=== PATIENT | female | born 1995 | race African-American/Black ===

== ENCOUNTER 2017-05-16 11:41 | Emergency (ER) | payer MEDICAID ==
[~2017-05-16] VITALS: Ht 162.6 cm; Wt 67.4 kg
[2017-05-16] MEDS ORDERED: SODIUM CHLORIDE 0.9% 1,000ML IVBOLUS ONE (12:30)
[2017-05-16] MEDS ORDERED: ONDANSETRON 2MG/ML, 2ML IVPush ONE (12:30)
[2017-05-16] MEDS ORDERED: SODIUM CHLORIDE FLUSH 10ML SYR IVF ONE (12:30)
[2017-05-16] MEDS ORDERED: MORPHINE SULFATE 4 MG/ML, 1ML IVPush PRN (12:30)
[2017-05-16] MEDS ORDERED: MORPHINE SULFATE 4 MG/ML, 1ML ONE (12:32)
[2017-05-16] MEDS ORDERED: ONDANSETRON 2MG/ML, 2ML ONE (12:33)
[2017-05-16 12:57] LABS: HEMATOCRIT 35.9 % (34.6-47.8); HEMOGLOBIN 12.1 g/dL (11.7-16.4); WHITE BLOOD COUNT 4.3 x10^3/uL (4.5-13.2)
[2017-05-16 12:58] LABS: ASPARTATE AMINO TRANSFERASE 20 U/L (15-37); BLOOD UREA NITROGEN 7 mg/dL (7-18)
[2017-05-16 14:57] VITALS: BP 115/70
== END 2017-05-16 14:59 | disposition home or self-care (01) ==
LOC: ED 14:53
DX: N93.8 Other specified abnormal uterine and vaginal bleeding (principal)
CPT/HCPCS: 36415; 76830; 80053; 81001; 84703; 85025; 96361; 96374; 96375; 99284; J2405; J7030

== ENCOUNTER 2018-07-19 20:37 | Outpatient (CLI) | payer MEDICAID ==
[~2018-07-19] VITALS: Ht 165.1 cm; Wt 75.9 kg
[2018-07-19 21:39] VITALS: BP 137/72
== END 2018-07-19 22:11 | disposition home or self-care (01) ==
LOC: LDOP 20:37
PROVIDERS: ATTEND Obstetrics & Gynecology
DX: O23.592 Infection of other part of genital tract in pregnancy, second trimester (principal); Z3A.25 25 weeks gestation of pregnancy
CPT/HCPCS: 59025; 99211; G0463

== ENCOUNTER 2018-10-11 02:33 | Outpatient (CLI) | payer MEDICAID ==
[2018-10-11 03:08] LABS: CULTURE INDICATED? YES; MICROSCOPIC INDICATED
[2018-10-11 03:13] LABS: AMPHETAMINE SCREEN, URINE Negative (Negative); BARBITURATE SCREEN, URINE Negative (Negative); BENZODIAZEPINE SCREEN, URINE Negative (Negative); CANNABINOID SCREEN, URINE Negative (Negative); COCAINE SCREEN, URINE Negative (Negative); METHADONE SCREEN, URINE Negative (Negative); OPIATE SCREEN, URINE Negative (Negative)
== END 2018-10-11 04:02 | disposition home or self-care (01) ==
LOC: LDOP 02:33
PROVIDERS: ATTEND Student in an Organized Health Care Education/Training Program
DX: O26.893 Other specified pregnancy related conditions, third trimester (principal); Z3A.37 37 weeks gestation of pregnancy
CPT/HCPCS: 59025; 80307; 81001; 87086; 99211; G0463

== ENCOUNTER 2019-11-23 16:43 | Emergency (ER) | payer MEDICAID ==
[~2019-11-23] VITALS: Ht 162.6 cm; Wt 79.0 kg
[2019-11-23 16:57] VITALS: BP 123/81
[2019-11-23] MEDS ORDERED: HYDROcodone/APAP 5/325 TABLET ONE (17:29)
[2019-11-23] MEDS ORDERED: HYDROcodone/APAP 5/325 TABLET PO ONE (17:30)
--- NOTE | 2019-11-23 17:56 | NUR ---
Patient/Caregiver given discharge instructions and they have confirmed that they understand the instructions. Patient ambulatory with steady gait. PT LEFT WITH ALL PERSONAL BELONGINGS.
== END 2019-11-23 17:59 | disposition home or self-care (01) ==
LOC: ED 17:45
DX: K04.7 Periapical abscess without sinus (principal); K02.9 Dental caries, unspecified
CPT/HCPCS: 99283